=== PATIENT | female | born 1950 | race African-American/Black ===

== ENCOUNTER 2018-06-07 06:02 | Day surgery (SDC) | payer MEDICARE, MEDICAID ==
[2018-06-07] VITALS (10 sets, daily range): BP systolic 124–142; BP diastolic 58–76
[~2018-06-07] VITALS: Ht 162.6 cm; Wt 71.2 kg
--- NOTE | 2018-06-07 00:21 | Pre-Procedure Note/Attestation ---
Pre-Procedure Note/Attestation Complete Prior to Procedure Planned Procedure: right - Removal of cataract and placement of intraocular lens, right eye, Possible use of iris retractors Procedure Narrative: Cataract, combined, right eye Posterior synechiae, right eye Indications for Procedure Pre-Operative Diagnosis: Cataract causing decreased vision OD interfering with patient's activities Attestation I attest that I discussed the nature of the procedure; its benefits; risks and complications; and alternatives (and the risks and benefits of such alternatives ), prior to the procedure, with the patient (or the patient's legal industrial sales representative). I attest that, if there was a reasonable possibility of needing a blood transfusion, the patient (or the patient's legal industrial sales representative) was given the [place] Department of Health Services standardized written summary, pursuant to the Steven Gross Blood Safety Act ([place] Health and Safety Code # 1645, as amended). I attest that I re-evaluated the patient just prior to the surgery and that there has been no change in the patient's H&P, except as documented below: Andres Dodge MD Jun 07, 2018 00:21
[~2018-06-07 06:02] MED LIST: AMLODIPINE BESYL5 MG ORAL; ASPIR 8181 MG ORAL; Akten 3.5% 1ml Btl ONE; Cyclopentolate 1% Opth Sol 2ml ONE; HYDROCHLOROTHIA25 MG ORAL; LISINOPRIL20 MG ORAL; METOPROLOL SUCC25 MG ORAL; Phenylephrine 10% Opth Soln 5ml ONE; SUPER B COMPLE1 EACH PO; SUPER B COMPLE150 MG PO; Tobradex Opth Susp 2.5ml ONE; Tropicamide 1% Opth 15ml Soln ONE; UNOBMED; VITAMIN D31000 UNI4 PO; Vigamox Opth Soln 3ml ONE
[2018-06-07] MEDS ORDERED: Timolol 0.5% Op Soln 2.5ml ONE (06:32)
[2018-06-07] MEDS ORDERED: Carbachol 0.01% Op Soln 1.5ml vial ONE (06:32)
[2018-06-07] MEDS ORDERED: Maxitrol Opth Oint 3.5gm ONE (06:32)
[2018-06-07] MEDS ORDERED: Dexamethasone 4mg/ml vial ONE (06:32)
[2018-06-07] MEDS ORDERED: BSS 500ml btl ONE ×2 (06:32→08:30)
[2018-06-07] MEDS ORDERED: Pred Forte 1% Opth Susp 1ml ONE (06:32)
[2018-06-07] MEDS ORDERED: Lidocaine 1% MPF 10mg/ml 5ml ONE (06:32)
[2018-06-07] MEDS ORDERED: EPINEPHrine 1mg/1ml Amp ONE ×2 (06:32→08:30)
[2018-06-07] MEDS ORDERED: Fluorescein Strips ONE (06:32)
[2018-06-07] MEDS ORDERED: Povidone-Iodine 5% opth solution ONE (06:33)
[2018-06-07] MEDS ORDERED: Tetracaine 0.5% Opth 4ml Soln ONE (06:33)
[2018-06-07] MEDS ORDERED: Sodium Hyaluronate 10 mg/ml 0.85ml ONE ×2 (06:33→08:13)
[2018-06-07] MEDS ORDERED: Bupivacaine 0.75% 30ml vial INJ ONE (06:33)
[2018-06-07] MEDS ORDERED: BSS 15ml BTL ONE (06:33)
[2018-06-07] MEDS: Cyclopentolate 1% Opth Sol 2ml RIGHT EYE SCH ×3 (06:40→07:03)
[2018-06-07] MEDS: Akten 3.5% 1ml Btl RIGHT EYE SCH ×3 (06:40→07:03)
[2018-06-07] MEDS: Tropicamide 1% Opth 15ml Soln RIGHT EYE SCH ×3 (06:40→07:04)
[2018-06-07] MEDS: Tobradex Opth Susp 2.5ml RIGHT EYE SCH ×3 (06:41→07:04)
[2018-06-07] MEDS: Phenylephrine 10% Opth Soln 5ml RIGHT EYE SCH ×3 (06:41→07:04)
[2018-06-07] MEDS: Vigamox Opth Soln 3ml RIGHT EYE SCH ×3 (06:41→07:04)
[2018-06-07] MEDS ORDERED: Propofol 200mg/20ml IV ONE (07:19)
[2018-06-07] MEDS ORDERED: Midazolam 2mg/2ml Inj ONE (07:19)
[2018-06-07] MEDS ORDERED: fentaNYL 100 mcg/2 mL IV ONE (07:19)
[2018-06-07] MEDS ORDERED: LR 1000ml ONE (07:30)
[2018-06-07] MEDS ORDERED: NS Irrig 1000ml ONE (07:30)
[2018-06-07] MEDS ORDERED: Sterile Water Irrig 1000ml IRRIG ONE (07:30)
[2018-06-07] MEDS ORDERED: Lidocaine 2% MPF 5ml Vial INJ ONE (07:56)
[2018-06-07] MEDS ORDERED: LR 1000ml 1,000 ML IVLG SCH (08:12)
--- NOTE | 2018-06-07 08:12 | Anethesia Preoperative Eval ---
Anesthesia Pre-op PMH/ROS General Date of Evaluation: Jun 07, 2018 Time of Evaluation: 07:22 Anesthesiologist: Snow ASA Score: ASA 2 Mallampati Score Class I : Soft palate, uvula, fauces, pillars visible Class II: Soft palate, uvula, fauces visible Class III: Soft palate, base of uvula visible Class IV: Only hard plate visible Mallampati Classification: Class II Surgeon: Dar Diagnosis: R eye cataract Surgical Procedure: R eye cataract extraction Anesthesia History: none Family History: no anesthesia problems Allergies: Coded Allergies: No Known Allergies (Unverified , 06/06/18) Medications: see eMAR Past Medical History Cardiovascular: Reports: HTN; Denies: CAD, [place], valve dz, arrhythmia, other Pulmonary: Denies: asthma, COPD, KRISSY, other Gastrointestinal/Genitourinary: Reports: GERD - mild; Denies: CRI, ESRD, other Neurologic/Psychiatric: Denies: dementia, CVA, depression/anxiety, TIA, other Endocrine: Reports: DM - stable HEENT: Reports: cataract (L), cataract (R); Denies: glaucoma, DOUGLAS (L), DOUGLAS (R), other Hematology/Immune: Reports: anemia; Denies: DVT, bleeding disorder, other PMH Narrative: as above PSxH Narrative: hysterectomy Anesthesia Pre-op Phys. Exam Physician Exam Last Vital Signs Date Time Temp Pulse Resp B/P (MAP) Pulse Ox O2 Delivery O2 Flow Rate FiO2 06/07/18 06:49 98.1 56 20 140/68 (92) 99 98.1 06/07/18 06:45 Room Air Constitutional: NAD Neurologic: CN 2-12 intact Cardiovascular: RRR, no M/R/G Respiratory: CTA Gastrointestinal: S/NT/ND Airway Exam Mallampati Score: Class II MO: limited Neck: stiff ROM: limited Teeth: missing Dentures: no upper, no lower Anesthesia Pre-op A/P Labs see chart Studies Pre-op Studies: EKG - NSR Risk Assessment & Plan Assessment: ASA 2 Plan: MAC Status Change Before Surgery: No Pre-Antibiotics Drug: none Remy Adamson MD Jun 07, 2018 08:12
[2018-06-07] MEDS ORDERED: fentaNYL 100 mcg/2 mL IV PRN (08:15)
[2018-06-07] MEDS ORDERED: DiphenhydrAMINE 50mg/ml Inj IVP PRN (08:15)
--- NOTE | 2018-06-07 08:56 | Discharge Instructions ---
Discharge Instructions Discharge Instructions Follow Up Orders Continue preop eye drops Wear shield at all times except to place eye drops followup tomorrow in Dr Dodge's office tomorrow at 8:45 For Congestive Heart Failure Reminder Report to your physician any weight gain of 5 pounds or more in one week. Andres Dodge MD Jun 07, 2018 08:56
--- NOTE | 2018-06-07 08:56 | Immediate Post-Op Evaluation ---
Immediate Post-Op Evalulation Immediate Post-Op Evalulation Procedure: R eye cataract extraction with IOL Date of Evaluation: Jun 07, 2018 Time of Evaluation: 08:55 IV Fluids: 300 Blood Products: none Estimated Blood Loss: none Urinary Output: none Blood Pressure Systolic: 136 Blood Pressure Diastolic: 72 Pulse Rate: 68 Respiratory Rate: 20 O2 Sat by Pulse Oximetry: 97 Temperature (Fahrenheit): 97.6 Pain Score (1-10): 1 Nausea: No Vomiting: No Complications none Patient Status: awake, patent, none Hydration Status: adequate Remy Adamson MD Jun 07, 2018 08:56
--- NOTE | 2018-06-07 08:59 | Brief Operative Note ---
Immediate Post Operative Note Operative Note Pre-op Diagnosis: Cataract causing decreased vision OD interfering with patient's activities Cataract, combine, OD Posterior synechia, OD Procedure: Phaco PC IOL, OD Lysis of posterior synechiae Use of malyugin ring (7.0mm) Post-op Diagnosis: same as pre-op Surgeon: Vangie Dodge MD Anesthesiologist: Dr Adamson Anesthesia: local, MAC Specimen: none Complications: none Fluids: see chart Implant(s) used?: Yes - tecgenevieve zcb00 25.5 Andres Dodge MD Jun 07, 2018 08:59
--- NOTE | 2018-06-07 10:41 | 48 Hour Post Anesthesia Eval ---
Post Anesthesia Evaluation Procedure: R eye cataract extraction with IOL Date of Evaluation: Jun 07, 2018 Time of Evaluation: 10:40 Blood Pressure Systolic: 138 0: 76 Pulse Rate: 62 Respiratory Rate: 20 Temperature (Fahrenheit): 97.8 O2 Sat by Pulse Oximetry: 98 Airway: patent Nausea: No Vomiting: No Pain Intensity: 1 Hydration Status: adequate Cardiopulmonary Status: stable Mental Status/LOC: patient returned to baseline Follow-up Care/Observations: n/a Post-Anesthesia Complications: none Follow-up care needed: ready to discharge Remy Adamson MD Jun 07, 2018 10:41
--- NOTE | 2018-06-07 15:32 | Operative Note - Dictated ---
DATE OF OPERATION: 06/07/2018 SURGEON: Andres Dodge M.D. SCORER SINGLE SURGEON: None. ANESTHESIOLOGIST: Remy Adamson M.D. ANESTHESIA: Local/standby/monitored anesthesia care. PREOPERATIVE DIAGNOSES: 1. Cataract, combined, right eye. 2. Posterior synechiae, right eye. 3. Miosis, right eye. POSTOPERATIVE DIAGNOSES: 1. Cataract, combined, right eye. 2. Posterior synechiae, right eye. 3. Miosis, right eye. PROCEDURE: 1. Phacoemulsification of cataract, right eye. 2. Placement of posterior chamber intraocular lens, right eye. 3. Use of Malyugin ring, right eye. (7.0 mm). 4. Placement of posterior chamber intraocular lens, model ZCB00, power 25.5. SPECIMENS: None. COMPLICATIONS: None. INDICATIONS FOR SURGERY: The patient has had the painless progressive decrease in visual acuity in the right eye secondary to cataract. The patient understands the risks of surgery including infection, bleeding, need for further surgery, loss of vision, no improvement in vision, loss of the eye, loss of life, glaucoma, retinal detachment, and understands these risks and elects to proceed with surgery. FINDINGS: The patient had a miotic pupil, but also had posterior synechiae at approximately 2 o'clock. There was lysed during the procedure and necessitated the use of a Malyugin ring because of the miosis. OPERATIVE NOTE: After informed consent was obtained, the patient was brought into the operating room, placed in supine position. Cardiac and respiratory monitors were attached. A time-out was performed and all criteria were met and everyone in the room agreed. The right eye was then draped and prepped in sterile manner for ocular surgery. A lid speculum was placed in the eye. A 1% lidocaine preservative-free was injected at the approximate 8:30 limbus. A conjunctiva peritomy from approximately 8:30 to 9:30 was made and dissected posteriorly. Hemostasis was maintained with bipolar cautery. A 2.6 mm limbal incision was made centered approximately 9 o'clock and dissected anteriorly. Paracentesis was made at approximately 11:30 and Shugarcaine was injected into the anterior chamber followed by Healon. The anterior chamber was then entered using a 2.8 mm keratome. Healon was injected into the anterior chamber followed by the Malyugin ring. Malyugin ring was attached four points on the pupillary margin. An anterior capsulorrhexis was then performed. Hydrodissection and hydrodelineation of the lens was then performed. The lens was then phacoemulsified using divide and conquer four-quadrant technique. Residual cortical material was then aspirated. Healon was injected into the anterior chamber and capsular bag. The lens was taken from its package, placed into the cartridge and the tip of the cartridge was placed through the limbal incision and the lens was injected into the capsular bag and centered nicely with a Sinskey hook. It was aligned to the 3 o'clock and 9 o'clock axis. The Malyugin ring was then removed and Healon was aspirated from the anterior chamber and capsular bag. One 10-0 nylon interrupted suture was then placed through the limbal incision, the knot was rotated and buried. Care was taken during the entire procedure not to touch the endothelium. The wound was checked and found to be watertight. The paracentesis was hydrated and closed. The conjunctiva was then closed with forceps cautery. The lid speculum and drapes removed from the eye and drops of Pred Forte and moxifloxacin were applied to the eye followed by Maxitrol ointment and a shield. The patient tolerated the procedure well and left the operating room awake, alert, and in stable condition. She is to follow up the next day, but sooner on a p.r.n. basis. Andres Dodge M.D. DR: SOPHIE JOB#: [id number] CC:
== END 2018-06-07 10:25 | disposition home or self-care (01) ==
LOC: SUR 06:02
DX: H25.811 Combined forms of age-related cataract, right eye (principal); H21.541 Posterior synechiae (iris), right eye; H57.03 Miosis; I10 Essential (primary) hypertension; E78.5 Hyperlipidemia, unspecified; E11.9 Type 2 diabetes mellitus without complications; I65.29 Occlusion and stenosis of unspecified carotid artery; K21.9 Gastro-esophageal reflux disease without esophagitis; D64.9 Anemia, unspecified; Z90.710 Acquired absence of both cervix and uterus
CPT/HCPCS: 66982; 82962; J0171; J1100; J2250; J2704; J3010; J7120; V2632; 94003; 94150

== ENCOUNTER 2018-07-12 09:49 | Day surgery (SDC) | payer MEDICARE, MEDICAID ==
[~2018-07-12] VITALS: Ht 162.6 cm; Wt 71.7 kg
[2018-07-12] VITALS (9 sets, daily range): BP systolic 135–155; BP diastolic 63–75
--- NOTE | 2018-07-12 06:51 | Pre-Procedure Note/Attestation ---
Pre-Procedure Note/Attestation Complete Prior to Procedure Planned Procedure: left - Removal of cataract and placement of intraocular lens , left eye Procedure Narrative: Removal of cataract and placement of intraocular lens, left eye Indications for Procedure Pre-Operative Diagnosis: Cataract, combined, left eye Attestation I attest that I discussed the nature of the procedure; its benefits; risks and complications; and alternatives (and the risks and benefits of such alternatives ), prior to the procedure, with the patient (or the patient's legal civil rights representative). I attest that, if there was a reasonable possibility of needing a blood transfusion, the patient (or the patient's legal civil rights representative) was given the [place] Department of Health Services standardized written summary, pursuant to the Steven Gay Blood Safety Act ([place] Health and Safety Code # 1645, as amended). I attest that I re-evaluated the patient just prior to the surgery and that there has been no change in the patient's H&P, except as documented below: Andres Dodge MD Jul 12, 2018 06:51
[~2018-07-12 09:49] MED LIST changes: -Akten 3.5% 1ml Btl ONE; -Cyclopentolate 1% Opth Sol 2ml ONE; -Phenylephrine 10% Opth Soln 5ml ONE; -Tobradex Opth Susp 2.5ml ONE; -Tropicamide 1% Opth 15ml Soln ONE; -Vigamox Opth Soln 3ml ONE
[2018-07-12] MEDS ORDERED: Cyclopentolate 1% Opth Sol 2ml ONE (10:23)
[2018-07-12] MEDS ORDERED: Akten 3.5% 1ml Btl ONE (10:23)
[2018-07-12] MEDS ORDERED: Phenylephrine 10% Opth Soln 5ml ONE (10:24)
[2018-07-12] MEDS ORDERED: Tropicamide 1% Opth 15ml Soln ONE (10:24)
[2018-07-12] MEDS ORDERED: Vigamox Opth Soln 3ml ONE (10:24)
[2018-07-12] MEDS ORDERED: Flurbiprofen 0.03% Opth Sol 2.5ml ONE (10:24)
[2018-07-12] MEDS: Akten 3.5% 1ml Btl LEFT EYE SCH ×3 (10:46→11:32)
[2018-07-12] MEDS: Phenylephrine 10% Opth Soln 5ml LEFT EYE SCH ×3 (10:46→11:24)
[2018-07-12] MEDS: Cyclopentolate 1% Opth Sol 2ml LEFT EYE SCH ×3 (10:46→11:24)
[2018-07-12] MEDS: Tropicamide 1% Opth 15ml Soln LEFT EYE SCH ×3 (10:46→11:24)
[2018-07-12] MEDS: Flurbiprofen 0.03% Opth Sol 2.5ml LEFT EYE SCH ×3 (10:48→11:25)
[2018-07-12] MEDS: Vigamox Opth Soln 3ml LEFT EYE SCH ×3 (10:49→11:25)
[2018-07-12] MEDS ORDERED: BIOTIN1 M1 PO (10:54)
[2018-07-12] MEDS ORDERED: Propofol 200mg/20ml IV ONE (11:48)
[2018-07-12] MEDS ORDERED: Midazolam 2mg/2ml Inj ONE (11:48)
[2018-07-12] MEDS ORDERED: fentaNYL 100 mcg/2 mL IV ONE (11:48)
[2018-07-12] MEDS ORDERED: LR 1000ml ONE (12:00)
[2018-07-12] MEDS ORDERED: Esmolol 100mg/10ml Inj ONE (12:00)
[2018-07-12] MEDS ORDERED: Sterile Water Irrig 1000ml IRRIG ONE (12:00)
[2018-07-12] MEDS ORDERED: NS Irrig 1000ml ONE (12:00)
--- NOTE | 2018-07-12 12:01 | Anethesia Preoperative Eval ---
Anesthesia Pre-op PMH/ROS General Date of Evaluation: Jul 12, 2018 Time of Evaluation: 11:40 ASA Score: ASA 2 Mallampati Score Class I : Soft palate, uvula, fauces, pillars visible Class II: Soft palate, uvula, fauces visible Class III: Soft palate, base of uvula visible Class IV: Only hard plate visible Mallampati Classification: Class II Surgeon: Dar Diagnosis: LEFT eye cataract Surgical Procedure: LEFT eye cataract extraction with IOL Anesthesia History: none Family History: no anesthesia problems Allergies: Coded Allergies: No Known Allergies (Unverified , 07/11/18) Medications: see eMAR Past Medical History Cardiovascular: Reports: HTN; Denies: CAD, [place], valve dz, arrhythmia, other Pulmonary: Denies: asthma, COPD, KRISSY, other Gastrointestinal/Genitourinary: Denies: GERD, CRI, ESRD, other Neurologic/Psychiatric: Denies: dementia, CVA, depression/anxiety, TIA, other Endocrine: Reports: DM - currently diet controlled, PO meds stopped < 1 yr ago ; Denies: hypothyroidism, steroids, other HEENT: Reports: cataract (L), cataract (R); Denies: glaucoma, NEWTOK (L), NEWTOK (R), other Hematology/Immune: Denies: anemia, DVT, bleeding disorder, other Musculoskeletal/Integumentary: Denies: OA, RA, DJD, DDD, edema, other PMH Narrative: as above PSxH Narrative: ARMAND, RIGHT eye cataract extraction Anesthesia Pre-op Phys. Exam Physician Exam Last Vital Signs Date Time Temp Pulse Resp B/P (MAP) Pulse Ox O2 Delivery O2 Flow Rate FiO2 07/12/18 11:32 Room Air 07/12/18 10:57 97.7 54 18 143/74 (97) 99 97.7 Constitutional: NAD Neurologic: CN 2-12 intact Cardiovascular: RRR Respiratory: CTA Gastrointestinal: S/NT/ND Airway Exam Mallampati Score: Class II MO: full TMD: > 3 FB ROM: full Teeth: intact Dentures: no upper, no lower Anesthesia Pre-op A/P Labs see chart Studies Pre-op Studies: EKG - NSR Risk Assessment & Plan Assessment: ASA II ok to proceed for anesthesia Plan: MAC Status Change Before Surgery: No Pre-Antibiotics Given Within 1 Hr of Incision: No Belle Clay CRNA Jul 12, 2018 12:01
[2018-07-12] MEDS ORDERED: Lidocaine 1% MPF 10mg/ml 5ml ONE (12:05)
[2018-07-12] MEDS ORDERED: Lidocaine 4% Amp ONE (12:05)
[2018-07-12] MEDS ORDERED: EPINEPHrine 1mg/1ml Amp ONE (12:05)
[2018-07-12] MEDS ORDERED: BSS 500ml btl ONE ×2 (12:06→12:55)
[2018-07-12] MEDS ORDERED: Povidone-Iodine 5% opth solution ONE (12:06)
[2018-07-12] MEDS ORDERED: Dexamethasone 4mg/ml vial ONE (12:06)
[2018-07-12] MEDS ORDERED: Fluorescein Strips ONE (12:06)
[2018-07-12] MEDS ORDERED: Carbachol 0.01% Op Soln 1.5ml vial ONE (12:06)
[2018-07-12] MEDS ORDERED: BSS 15ml BTL ONE (12:06)
[2018-07-12] MEDS ORDERED: Timolol 0.5% Op Soln 2.5ml ONE (12:06)
[2018-07-12] MEDS ORDERED: Maxitrol Opth Oint 3.5gm ONE (12:06)
[2018-07-12] MEDS ORDERED: Tetracaine 0.5% Opth 4ml Soln ONE (12:07)
[2018-07-12] MEDS ORDERED: Bupivacaine 0.75% 30ml vial INJ ONE (12:07)
[2018-07-12] MEDS ORDERED: Sodium Hyaluronate 10 mg/ml 0.85ml ONE ×2 (12:24→12:45)
[2018-07-12] MEDS ORDERED: Pred Forte 1% Opth Susp 1ml ONE (13:03)
--- NOTE | 2018-07-12 13:18 | Immediate Post-Op Evaluation ---
Immediate Post-Op Evalulation Immediate Post-Op Evalulation Procedure: LEFT cataract extraction IOL Date of Evaluation: Jul 12, 2018 Time of Evaluation: 13:14 IV Fluids: LR 400 ML Estimated Blood Loss: none Blood Pressure Systolic: 152 Blood Pressure Diastolic: 63 Pulse Rate: 64 Respiratory Rate: 12 O2 Sat by Pulse Oximetry: 100 Temperature (Fahrenheit): 97.5 Pain Score (1-10): 0 Nausea: No Vomiting: No Complications none Patient Status: awake, reacts, patent Hydration Status: adequate Given Within 1 Hr of Incision: Belle Mason CRNA Jul 12, 2018 13:18
--- NOTE | 2018-07-12 13:20 | Brief Operative Note ---
Immediate Post Operative Note Operative Note Pre-op Diagnosis: Cataract, combined, left eye Procedure: Phaco PC IOL, OS Post-op Diagnosis: same as pre-op Surgeon: Vangie Dodge MD MS Metal Polisher: none Anesthesiologist: Stella Clay CRNA Anesthesia: local, MAC Specimen: none Complications: none Fluids: see chart Implant(s) used?: Yes - tecnis de leon [id number] 26.0 Andres Dodge MD Jul 12, 2018 13:20
--- NOTE | 2018-07-12 13:24 | Discharge Instructions ---
Discharge Instructions Discharge Instructions Follow Up Orders Continue pre op medications Wear shield at all times except to place eye drops Followup in Dr Dodge's office tomorrow at 9:45 AM sooner as needed For Congestive Heart Failure Reminder Report to your physician any weight gain of 5 pounds or more in one week. Andres Dodge MD Jul 12, 2018 13:24
--- NOTE | 2018-07-12 14:33 | 48 Hour Post Anesthesia Eval ---
Post Anesthesia Evaluation Procedure: LEFT cataract extraction IOL Date of Evaluation: Jul 12, 2018 Time of Evaluation: 13:45 Blood Pressure Systolic: 149 0: 66 Pulse Rate: 65 Respiratory Rate: 18 Temperature (Fahrenheit): 98.2 O2 Sat by Pulse Oximetry: 100 Airway: patent Nausea: No Vomiting: No Pain Intensity: 0 Hydration Status: adequate Mental Status/LOC: patient returned to baseline Follow-up Care/Observations: none Post-Anesthesia Complications: none Follow-up care needed: ready to discharge Belle Clay CRNA Jul 12, 2018 14:33
--- NOTE | 2018-07-13 20:30 | Operative Note - Dictated ---
DATE OF OPERATION: 07/12/2018 SURGEON: Andres Dodge M.D. ASSISTANCE SURGEON: None. ANESTHESIOLOGIST: Belle Clay. PROCEDURES: 1. Phacoemulsification of cataract, left eye. 2. Placement of posterior chamber intraocular lens, left eye (model Guillen [id number], power 26.0). SPECIMENS: None. COMPLICATIONS: None. INDICATIONS FOR SURGERY: The patient has had a painless progressive decrease in visual acuity in left eye secondary to cataract. The patient understands the risks of surgery including infection, bleeding, need for further surgery, loss of vision, no improvement in vision, loss of the eye, loss of life, glaucoma, retinal detachment and understands these risks and elects to proceed with surgery. FINDINGS: The patient had a +3 nuclear sclerotic cataract as well as a +2 to 3 cortical cataract. Also, it was a very dense cataract that required extensive phacoemulsification and the bottle during the procedure ran out of fluid and had to be replaced during the procedure (the irrigating fluid through the phaco unit). OPERATIVE NOTE: After informed consent was obtained, the patient was brought into the operating room and placed in the supine position. Cardiac and respiratory monitors were attached. A time-out was performed and all criteria were met and everyone in the room agreed. The left eye was draped and prepped in sterile manner for ocular surgery. A lid speculum was placed in the eye. A 1% lidocaine preservative-free was injected at the approximate 2:30 limbus. A conjunctiva peritomy from approximately 2 o'clock to 3 o'clock was made and dissected posteriorly. Hemostasis was maintained with bipolar cautery. A 2.6 mm limbal incision was made centered at approximately 2:30 and dissected anteriorly. A paracentesis was made at approximately 5:30 and Shugarcaine was injected into the anterior chamber followed by Healon. The anterior chamber was then entered using a 2.6 mm keratome through the limbal incision. An anterior capsulorrhexis was then performed. Hydrodissection and hydrodelineation of the lens was then performed. The lens was then phacoemulsified using divide and conquer four-quadrant technique. Residual cortical material was then aspirated. Healon was injected into the anterior chamber and capsular bag. The lens was taken from its package, placed into the cartridge, and the tip of the cartridge was placed through the limbal incision and the lens was injected into the capsular bag and centered nicely with a Sinskey hook. Healon was aspirated from the anterior chamber and capsular bag. One 10-0 nylon interrupted suture was placed through the limbal incision. All wounds were checked and found to be watertight. The lens was re-evaluated and was found to be in the 3 to 6 meridian and both haptics and the optic were in the capsular bag. After the wounds were rechecked and found to be watertight, the conjunctiva was closed with forceps cautery. The lid speculum and drapes removed from the eye and drops of Pred Forte, moxifloxacin, and Timoptic 0.5% were applied to the eye followed by Maxitrol ointment and a shield. The patient tolerated the procedure well and left the operating room in awake, alert, and stable condition. Andres Dodge M.D. DR: TOMASA JOB#: [id number] CC:
== END 2018-07-12 14:30 | disposition home or self-care (01) ==
LOC: SUR 09:49
DX: H25.812 Combined forms of age-related cataract, left eye (principal); I10 Essential (primary) hypertension; E11.9 Type 2 diabetes mellitus without complications; Z90.710 Acquired absence of both cervix and uterus
CPT/HCPCS: 66984; J0171; J0360; J1100; J2250; V2632; 94003; 94150